=== PATIENT | female | born 1980 | race Caucasian/White ===

== ENCOUNTER 2020-07-23 16:46 | Emergency (ER) | payer OTHER ==
[~2020-07-23] VITALS: Ht 165.1 cm; Wt 47.6 kg
[2020-07-23 16:49] VITALS: BP 105/70
--- NOTE | 2020-07-23 18:39 | NUR ---
40 Y/O F BIBA, HOMELESS, C/O L EYE AND R EAR PAIN THAT STARTED YESTERDAY. UPON INSPECTION, PT L EYE HAS REDNESS AND CLEAR DISCHARGE. PT STATES SHE PUT A QTIP AND AMIRAH PIN IN HER EAR AND IS NOW HAVING A PAIN AND "MUFFLED" SOUND IN R EAR. DENIES N/V/D; SKIN IS FLUSHED/WARM/DRY; AAOX4 WITH EVEN AND STEADY GAIT; LUNGS CLEAR BL; HR EVEN AND REGULAR; PT DENIES ANY FEVER, CP, SOB, OR COUGH AT THIS TIME; PATIENT STATES PAIN OF 8/10 AT THIS TIME; VSS; PATIENT POSITIONED FOR COMFORT; HOB ELEVATED; BEDRAILS UP X2; BED DOWN. ER MD MADE AWARE OF PT STATUS. PMH: BIPOLAR DISORDER ALLERGY: NSAIDS
--- NOTE | 2020-07-23 18:50 | NUR ---
AURELIA MORROW AT BEDSIDE WITH PT
[2020-07-23] MEDS ORDERED: ACETAMINOPHEN 325 MG TAB PO ONE (18:55)
[2020-07-23] MEDS ORDERED: FLUORESCEIN OPTH STRIP 1 MG OP ONE (18:55)
[2020-07-23] MEDS ORDERED: TETRACAINE HCL/PF 0.5% OPTH 4 ML BTL OP ONE (18:55)
--- NOTE | 2020-07-23 19:15 | NUR ---
PA AT BEDSIDE FOR EXAMINATION OF EYE.
--- NOTE | 2020-07-23 19:30 | NUR ---
visual acuity test performed, R eye 20/20; L eye 20/200
--- NOTE | 2020-07-23 19:40 | NUR ---
HOMELESS MEAL GIVEN TO PT.
[2020-07-23] MEDS ORDERED: ACET-9527 PO (19:55)
[2020-07-23] MEDS ORDERED: CILOS LEFT EYE (19:55)
[2020-07-23 20:15] VITALS: BP 105/70
--- NOTE | 2020-07-23 20:15 | NUR ---
Patient discharged with v/s stable. Written and verbal after care instructions given and explained. Patient alert, oriented and verbalized understanding of instructions. Ambulatory with steady gait. All questions addressed prior to discharge. ID band removed. Patient advised to follow up with PMD. Rx of HYDROCODONE/ACETAMINOPHEN AND CILOXAN given. Patient educated on indication of medication including possible reaction and side effects. Opportunity to ask questions provided and answered.
== END 2020-07-23 20:15 | disposition home or self-care (01) ==
LOC: MED 16:46
DX: H16.002 Unspecified corneal ulcer, left eye (principal); H92.01 Otalgia, right ear; Z88.8 Allergy status to other drugs, medicaments and biological substances
CPT/HCPCS: 99284

== ENCOUNTER 2020-09-27 05:05 | Emergency (ER) | payer OTHER ==
[~2020-09-27] VITALS: Ht 165.1 cm; Wt 52.2 kg
[2020-09-27 05:05] VITALS: BP 131/86
[~2020-09-27 05:05] MED LIST: ACET-9527 PO; CILOS LEFT EYE
--- NOTE | 2020-09-27 05:06 | NUR ---
BIBA TO ER BED 3
--- NOTE | 2020-09-27 05:08 | NUR ---
PATIENT TAKEN TO BED 3 VIA GURNEY.
--- NOTE | 2020-09-27 05:10 | NUR ---
PT BIBA BLS FOR BILATERAL EYE PAIN X 8 HOURS. PER [facility], PT WAS OUTSIDE [facility] WHEN DUST FLEW IN THE AIR AND GOT IN HER EYES. PT REPORTS SHE BEGAN RUBBING HER EYES NONSTOP FOR THE NEXT 8 HOURS D/T THE PAIN. EYES NOTED WITH REDNESS TO SURROUNDING SITE WITH SWELLING. PT REFUSING TO OPEN EYES AT THIS TIME. PT ALSO NOTED WITH SWELLING TO RIGHT LEG, PT REPORTS "ITS JUST NATURAL." HR EVEN AND REGULAR; DENIES N/V/D; SKIN IS PINK/WARM/DRY; AAOX4 WITH EVEN AND STEADY GAIT; HR EVEN AND REGULAR; PT DENIES ANY FEVER, CP, SOB, OR COUGH AT THIS TIME; VSS; PATIENT POSITIONED FOR COMFORT; HOB ELEVATED; BEDRAILS UP X2; BED DOWN. ER MD MADE AWARE OF PT STATUS. MED HX: DENIES ALLERGIES: NSAIDS
--- NOTE | 2020-09-27 05:18 | NUR ---
MARIETTA MCCLAIN AT BEDSIDE
[2020-09-27] MEDS ORDERED: TETRACAINE HCL/PF 0.5% OPTH 4 ML BTL ONE (05:27)
[2020-09-27] MEDS ORDERED: FLUORESCEIN OPTH STRIP 1 MG ONE (05:27)
[2020-09-27] MEDS ORDERED: VANCOMYCIN 1,000 MG in DEXTROSE 5% 250 ML IV ONE (05:40)
[2020-09-27] MEDS ORDERED: ERYTHROMYCIN 0.5% OPTH OINT 1 GM TUBE OP ONE (05:40)
[2020-09-27] MEDS ORDERED: cefTRIAXone 2,000 MG in DEXTROSE 5% 100 ML IV ONE (05:40)
--- NOTE | 2020-09-27 06:07 | NUR ---
PT. YELLING AT NURSING STAFF FOR TRYING TO PLACE AN IV ON LEFT ARM. NO ATTEMPTS AT IV'S INSERTION YET. PT. AGITATED AT THIS TIME AND WILL TRY AGAIN IN 10 MINS.
[2020-09-27 06:09] LABS: BASOPHILS # (AUTO) 0.1 K/uL (0.00-0.22); BASOPHILS % (AUTO) 0.8 % (0.0-2.0); EOSINOPHILS % (AUTO) 0.5 % (0.0-4.0); HEMATOCRIT 36.3 % (36-48); HEMOGLOBIN 12.1 g/dL (12.0-16.0); LYMPHOCYTES # (AUTO) 2.9 K/uL (2.5-16.5); LYMPHOCYTES % (AUTO) 32.9 % (20.5-51.1); MEAN CORPUSCULAR HEMOGLOBIN 29 pg (27-31); MEAN CORPUSCULAR HGB CONC 33 g/dL (33-37); MONOCYTES # (AUTO) 0.8 K/uL (0.8-1.0); MONOCYTES % (AUTO) 8.9 % (1.7-9.3); NEUTROPHILS % (AUTO) 56.9 % (42.2-75.2); PLATELET COUNT (AUTO) 206 K/uL (140-450); RED BLOOD CELL COUNT(AUTO) 4.13 MIL/uL (4.20-5.40); RED CELL DISTRIBUTION WIDTH 14.4 % (11.6-13.7)
[2020-09-27] MEDS ORDERED: TETRACAINE HCL/PF 0.5% OPTH 4 ML BTL OP ONE (06:15)
[2020-09-27 06:16] LABS: WHITE BLOOD COUNT (AUTO) 8.9 K/uL (4.8-10.8)
[2020-09-27] MEDS ORDERED: FLUORESCEIN OPTH STRIP 1 MG OP ONE (06:30)
[2020-09-27 06:32] LABS: ALBUMIN 2.4 g/dL (3.4-5.0); ANION GAP 2.8 (8-16); CARBON DIOXIDE 32.4 mmol/L (21-32); CREATININE 0.6 mg/dL (0.6-1.3); POTASSIUM 4.2 mmol/L (3.5-5.1); TOTAL BILIRUBIN 0.3 mg/dL (0.0-1.0)
--- NOTE | 2020-09-27 06:35 | NUR ---
PT. REFUSING TDAP VACCINE. EDUCATED ON IMPORTANCE OF TDAP VACCINE. PT. STILL REFUSED. ERMD MADE AWARE.
--- NOTE | 2020-09-27 07:14 | NUR ---
PT. BACK FROM CT
--- NOTE | 2020-09-27 07:17 | NUR ---
GAVE REPORT TO NORM GARY. TRANSFER OF CARE AT THIS TIME.
--- NOTE | 2020-09-27 08:34 | NUR ---
SECURITY CALLED TO BEDSIDE. PT IS PENDING DISCHARGE. PT YELLING AND REFUSING TO LEAVE. ESTRELLA AT BEDSIDE.
[2020-09-27] MEDS ORDERED: TOBR5SOL17 LEFT EYE (08:37)
[2020-09-27] MEDS ORDERED: CEPH-588 PO (08:37)
[2020-09-27 08:39] VITALS: BP 131/86
--- NOTE | 2020-09-27 08:40 | NUR ---
Patient discharged with v/s stable. Written and verbal after care instructions given and explained. Patient alert, oriented and verbalized understanding of instructions. Ambulatory with steady gait. All questions addressed prior to discharge. ID band removed. Patient advised to follow up with PMD. Rx of KEFLEX, TOBRAMYCIN given. Patient educated on indication of medication including possible reaction and side effects. Opportunity to ask questions provided and answered.
== END 2020-09-27 08:40 | disposition home or self-care (01) ==
LOC: MED 05:05
DX: H10.32 Unspecified acute conjunctivitis, left eye (principal)
CPT/HCPCS: 36415; 70480; 80053; 85025; 90715; 99284

== ENCOUNTER 2020-10-28 11:16 | Emergency (ER) | payer OTHER ==
[~2020-10-28] VITALS: Ht 167.6 cm; Wt 63.5 kg
[~2020-10-28 11:16] MED LIST changes: +CEPH-588 PO; +TOBR5SOL17 LEFT EYE
--- NOTE | 2020-10-28 11:19 | NUR ---
PT HUA TO BED 08 VIA [facility].
[2020-10-28 11:20] VITALS: BP 117/68
--- NOTE | 2020-10-28 11:30 | NUR ---
40 Y/O FEMALE C/O RT FLANK PAIN FOR X2 DAYS. BRUSING TO RLQ NOTED. DENIES ANY RECENT INJURY OR FALL. ALSO C/O RT LEG PAIN. REDNESS AND EDEMA NOTED TO RT LEG. MEDhx gastric sleeve, homeless, psych ALLERGIES: NSAIDS
--- NOTE | 2020-10-28 11:37 | NUR ---
DR FLETCHER AT BEDSIDE EXAMINING PT
[2020-10-28] MEDS ORDERED: LORazepam 1 MG TAB PO ONE (11:45)
--- NOTE | 2020-10-28 12:13 | NUR ---
PT REFUSING TO PROVIDE URINE, ERMD MADE AWARE
[2020-10-28] MEDS ORDERED: NACL 0.9% 1,000 ML IV ONE (14:05)
--- NOTE | 2020-10-28 14:43 | NUR ---
PT TAKEN TO CT SCAN VIA [facility]
--- NOTE | 2020-10-28 14:50 | NUR ---
PT RETURNED FROM CT SCAN
[2020-10-28 15:06] LABS: BASOPHILS # (AUTO) 0.1 K/uL (0.00-0.22); BASOPHILS % (AUTO) 1.3 % (0.0-2.0); EOSINOPHILS % (AUTO) 0.7 % (0.0-4.0); HEMATOCRIT 33.6 % (36-48); HEMOGLOBIN 11.2 g/dL (12.0-16.0); LYMPHOCYTES # (AUTO) 2.4 K/uL (2.5-16.5); LYMPHOCYTES % (AUTO) 34.4 % (20.5-51.1); MEAN CORPUSCULAR HEMOGLOBIN 30 pg (27-31); MEAN CORPUSCULAR HGB CONC 33 g/dL (33-37); MEAN CORPUSCULAR VOLUME 90.6 fL (80-94); MONOCYTES # (AUTO) 0.5 K/uL (0.8-1.0); NEUTROPHILS # (AUTO) 3.9 K/uL (1.8-7.7); NEUTROPHILS % (AUTO) 56.6 % (42.2-75.2); PLATELET COUNT (AUTO) 221 K/uL (140-450); RED CELL DISTRIBUTION WIDTH 15.6 % (11.6-13.7); WHITE BLOOD COUNT (AUTO) 6.9 K/uL (4.8-10.8)
[2020-10-28 15:27] LABS: ALBUMIN 2.5 g/dL (3.4-5.0); ANION GAP 8.8 (8-16); CARBON DIOXIDE 28.2 mmol/L (21-32); CREATININE 0.6 mg/dL (0.6-1.3); TOTAL BILIRUBIN 0.3 mg/dL (0.0-1.0)
--- NOTE | 2020-10-28 16:30 | NUR ---
Patient has eyes closed appears to be resting comfortably in bed. Vital Signs within normal limits. Respirations even and unlabored. Will continue to monitor.
[2020-10-28] MEDS ORDERED: POTA10TE30 PO (17:01)
[2020-10-28 18:20] VITALS: BP 110/72
--- NOTE | 2020-10-28 18:20 | NUR ---
Patient discharged with v/s stable. Written and verbal after care instructions given and explained. Patient alert, oriented and verbalized understanding of instructions. Ambulatory with steady gait. All questions addressed prior to discharge. ID band removed. Patient advised to follow up with PMD. Rx of KDUR given. Patient educated on indication of medication including possible reaction and side effects. Opportunity to ask questions provided and answered.
== END 2020-10-28 18:20 | disposition home or self-care (01) ==
LOC: MED 11:16
DX: R19.7 Diarrhea, unspecified (principal); R10.31 Right lower quadrant pain; R60.0 Localized edema; Z88.6 Allergy status to analgesic agent; Z79.899 Other long term (current) drug therapy
CPT/HCPCS: 36415; 74176; 80053; 83690; 84703; 85025; 96360; 99284; J7030

== ENCOUNTER 2020-11-03 16:20 | Emergency (ER) | payer OTHER ==
[~2020-11-03] VITALS: Ht 167.6 cm; Wt 63.5 kg
[~2020-11-03 16:20] MED LIST changes: +POTA10TE30 PO
[2020-11-03 16:27] VITALS: BP 96/58
[2020-11-03] MEDS ORDERED: ACETAMINOPHEN EXTRA STRENGTH 500 MG TAB PO ONE (17:00)
--- NOTE | 2020-11-03 18:00 | NUR ---
PT LEFT/ELOPED FROM FACILITY.
== END 2020-11-03 18:00 | disposition left against medical advice (07) ==
LOC: MED 16:20
DX: R07.81 Pleurodynia (principal); Z53.21 Procedure and treatment not carried out due to patient leaving prior to being seen by health care provider
CPT/HCPCS: 71046; 99281